=== PATIENT | male | born 1985 | race Caucasian/White ===

== ENCOUNTER 2017-11-01 11:58 | Emergency (ER) | payer MEDICARE, OTHER ==
[~2017-11-01] VITALS: Ht 167.6 cm; Wt 109.8 kg
[~2017-11-01 11:58] MED LIST: AMBIEN 10 MG TA10 MG PO; ATIVAN1 MG PO; BENZTROPINE ME0.5 MG PO; DEPAKOTE500 MG PO; DEXILANT60 MG PO; GUANFACINE HCL1 MG; HALOPERIDOL 1 MG1 MG PO; LAMICTAL XR200 MG PO; LEVOTHROID100 MC1; LITHIUM CARBON450 MG; NUVIGIL PO; PROTONIX40 M2; RISPERDAL 1 MG T1 MG PO; VITAMIN D10000 UNIT; [UNRECOGNIZED DRUG - OTHER]; [UNRECOGNIZED DRUG - OTHER]
[2017-11-01] MEDS ORDERED: DEXILANT60 MG PO (12:16)
[2017-11-01] MEDS ORDERED: SYNTHROID88 MCG PO (12:17)
[2017-11-01] MEDS ORDERED: GUANFACINE HCL1 MG PO (12:18)
[2017-11-01] MEDS ORDERED: ZOCOR20 MG PO (12:19)
[2017-11-01] MEDS ORDERED: ZIPRASIDONE HCL60 MG PO (12:19)
[2017-11-01] MEDS ORDERED: COLACE100 MG PO (12:20)
[2017-11-01] MEDS ORDERED: VITAMIN D2000 UNIT IM (12:20)
[2017-11-01] MEDS ORDERED: FISH OIL 1,001000 M2 PO (12:21)
[2017-11-01] MEDS ORDERED: B-121000 MC2 PO (12:22)
[2017-11-01 14:36] VITALS: BP 119/84
== END 2017-11-01 14:37 | disposition home or self-care (01) ==
LOC: M.ERS 11:58
DX: F95.2 Tourette's disorder (principal); Z87.891 Personal history of nicotine dependence; Z88.8 Allergy status to other drugs, medicaments and biological substances

== ENCOUNTER 2020-07-02 13:14 | Emergency (ER) | payer MEDICARE, OTHER ==
[~2020-07-02] VITALS: Ht 167.6 cm; Wt 63.5 kg
[~2020-07-02 13:14] MED LIST changes: +B-121000 MC2 PO; +COLACE100 MG PO; +FISH OIL 1,001000 M2 PO; +GUANFACINE HCL1 MG PO; +SYNTHROID88 MCG PO; +VITAMIN D2000 UNIT IM; +ZIPRASIDONE HCL60 MG PO; +ZOCOR20 MG PO
[2020-07-02 14:59] VITALS: BP 124/76
== END 2020-07-02 14:59 | disposition home or self-care (01) ==
LOC: M.ERS 13:14
DX: F95.2 Tourette's disorder (principal); Z88.8 Allergy status to other drugs, medicaments and biological substances

== ENCOUNTER 2021-01-30 12:15 | Emergency (ER) | payer MEDICARE, OTHER ==
[~2021-01-30] VITALS: Ht 167.6 cm; Wt 63.5 kg
[2021-01-30] MEDS ORDERED: ZOLOFT50 M1 PO (12:31)
[2021-01-30] MEDS ORDERED: NEXIUM40 MG PO (12:31)
[2021-01-30 14:07] VITALS: BP 115/65
== END 2021-01-30 14:08 | disposition home or self-care (01) ==
LOC: M.ERS 12:15
DX: F95.2 Tourette's disorder (principal); Z87.891 Personal history of nicotine dependence; Z88.8 Allergy status to other drugs, medicaments and biological substances; Z79.899 Other long term (current) drug therapy